=== PATIENT | female | born 1970 | race Caucasian/White ===

== ENCOUNTER → 2017-10-01 | Day surgery (SDC) | payer OTHER ==
[~2017-10-01] VITALS: Ht 165.1 cm; Wt 65.8 kg
--- NOTE | 2017-10-01 11:03 | Operative Report ---
Operative/Inv Procedure Report Surgery Date: 10/01/17 Name of Procedure: Excision right nipple mass, nipple exploration Pre-Operative Diagnosis: Right nipple lesion and bloody discharge Post-Operative Diagnosis: Breast abscess Estimated Blood Loss: scant Surgeon/Sales Development Representative: Dory Norris MD Anesthesia: none Specimens: Right nipple lesion Operative/Procedure Note Note: Patient is presenting with bloody nipple discharge and excoriation of the nipple with a history of previous nipple exploration. She was brought for excisional biopsy and nipple exploration. She declined anesthesia and therefore local anesthesia alone was used. She is brought to the operating room and the right breast was prepped and draped in sterile fashion using ChloraPrep. 1% lidocaine mixed with half percent Marcaine was used to do a block of the region. Anesthesia. Adequate. The skin lesion at 1:00 in the nipple was excised along with granulation tissue visible below the nipple. The base of the nipple was explored and a small amount of purulent fluid was see. this was irrigated and the cavity was explored. There was no obvious sinus tract or deeper abscess. Hemostasis was achieved using electrocautery. Deep tissue was approximated using interrupted Vicryl sutures. Biosyn sutures were used to reconstruct the nipple and close the skin. Dermabond was used as a dressing. Patient tolerated the procedure well.
== END ==
LOC: STS 08-13 07:00
DX: D24.1 Benign neoplasm of right breast (principal); N64.52 Nipple discharge
CPT/HCPCS: 81025; 88307; J0690; J2001; J2250